=== PATIENT | female | born 1990 | race Caucasian/White ===

== ENCOUNTER 2024-02-29 00:06 | Emergency (ER) | payer MEDICAID ==
[~2024-02-29] VITALS: Ht 162.6 cm; Wt 90.7 kg
[2024-02-29 00:29] VITALS: BP_SYST 130; PULSE 73; RESP 20; TEMP 97.5; O2SAT 99
[2024-02-29 01:51] VITALS: BP_SYST 130; PULSE 73; RESP 20; TEMP 97.5; O2SAT 99
== END 2024-02-29 01:51 | disposition home or self-care (01) ==
LOC: SED 00:06
DX: F41.9 Anxiety disorder, unspecified (principal); R22.0 Localized swelling, mass and lump, head; R20.2 Paresthesia of skin; R25.3 Fasciculation
CPT/HCPCS: 99281